=== PATIENT | female | born 1955 | race Caucasian/White ===

== ENCOUNTER 2016-10-19 16:08 | Emergency (ER) | payer SELFPAY ==
[2016-10-19] MEDS ORDERED: BUPIVACAINE 0.5% PF 30 ML VIAL SUBQ STA (17:15)
[2016-10-19] MEDS ORDERED: BUPIVACAINE 0.5% PF 30 ML VIAL ONE (17:27)
--- NOTE | 2016-10-19 17:31 | XRAY Preliminary Report ---
Exam: XR Wrist 4 View RT IMPRESSION: Acute right distal radial and ulnar fractures as above. [facility] SITE ID: [id number]
--- NOTE | 2016-10-19 17:32 | PROVIDER PROGRESS NOTE ---
Subjective - Prog Note Date Prog Note Date: 10/19/16 Prog Note Time: 17:30 - Subjective Subjective: Visitor from [place] today [place] walking on logs. Landed onto outstretched right dominant wrist. No LOC or distal weakness or numbness. No prior fractures at wrist. Objective - Vital Signs/Intake & Output Vital Signs: Vital Signs x48h Temp Pulse Resp BP Pulse Ox 10/19/16 16:26 37 C 73 14 111/65 100 - Diagnostic Imaging Diagnostic Imaging Comments: Extra-articular distal radius fracture - esstentially out to length with some dorsal displacement - Other Results/Comments Other Results/Comments: EXAM: Moves fingers well. Sensation intact. Good cap filling. Obvious bent fork deformity at wrist. Assessment/Plan - Problem List (1) Fracture of right distal radius Qualifiers: Encounter type: initial encounter Fracture type: closed Fracture morphology: Los' Qualified Code(s): S52.531A - Colles' fracture of right radius, initial encounter for closed fracture
--- NOTE | 2016-10-19 17:34 | XRAY Report ---
EXAM: RIGHT WRIST RADIOGRAPHY EXAM DATE: 10/19/2016 05:02 PM. CLINICAL HISTORY: Deformity. Fall, right wrist deformity. COMPARISON: None. TECHNIQUE: 4 views. FINDINGS: Bones: Acute right distal radial and ulnar fractures. There is moderate dorsal angulation of the righ t distal radial fracture through the metaphysis and epiphysis with moderate dorsal displacement along with impaction. Acute distal ulnar fracture with mild dorsal angulation and impaction. Small bone cysts seen at the capitate and scaphoid Joints: No dislocation. Soft Tissues: Wrist soft tissue swelling IMPRESSION: Acute right distal radial and ulnar fractures as above. [facility] Referring Provider Line: [phone] SITE ID: [id number]
--- NOTE | 2016-10-19 17:46 | ED Physician Documentation ---
History of Present Illness - Stated complaint Stated Complaint: RIGHT ARM/HAND PX - Chief complaint Chief Complaint: Ext Problem - Additonal information Additional information: hx from pt 60 f here on holiday from [place] trip and fall FOOSH R arm deformity no other injuries last ate 2 PM Review of Systems Musculoskeletal: reports: Extremity pain PD PAST MEDICAL HISTORY - Past Medical History Past Medical History: No - Past Surgical History Past Surgical History: Yes - Present Medications Home Medications: Ambulatory Orders Medication Instructions Recorded Confirmed Ibuprofen [Motrin] 400 mg PO Q6H PRN #30 tablet 10/19/16 Oxycodone HCl/Acetaminophen 1 each PO Q6HR PRN #10 tablet 10/19/16 [Percocet 5-325 mg Tablet] - Allergies Allergies/Adverse Reactions: Allergies Allergy/AdvReac Type Severity Reaction Status Date / Time No Known Drug Allergies Allergy Verified 10/19/16 16:29 - Social History Does the pt smoke?: No Smoking Status: Never smoker Does the pt drink ETOH?: No Does the pt have substance abuse?: No - Immunizations Immunizations are current?: Yes - POLST Patient has POLST: No PD ED PE NORMAL - Vitals Vital signs reviewed: Yes - HEENT HEENT: Atraumatic - Cardiac Cardiac: RRR - Respiratory Respiratory: No respiratory distress, Clear bilaterally - Extremities Extremities: Other (deformity distal R FA, MSV intact to hand) Results - Vitals Vitals: Vital Signs - 24 hr 10/19/16 16:26 Temperature 37 C Heart Rate 73 Respiratory 14 Rate Blood Pressure 111/65 O2 Saturation 100 Oxygen O2 Source Room air - Rads (name of study) wrist Radiology: See rad report (acute distal radius and ulna fx with dorsal angulation and displacement) wrist 2 Radiology: See rad report (reduced) PD MEDICAL DECISION MAKING - ED course ED course: hematoma block with 6 cc 0.5% marcaine s epi with good effect pt placed in traps and tehn Dr Almazan reduced the fracture and applied the splint (sse his note) post reduction film shows good alignment Departure - Departure Disposition: 01 Home, Self Care Clinical Impression: Fracture of right distal radius Qualifiers: Encounter type: initial encounter Fracture type: closed Fracture morphology: Colles' Qualified Code(s): S52.531A - Colles' fracture of right radius, initial encounter for closed fracture Condition: Good Instructions: ED Fx Forearm Radius Ulna Redu Requ, ED Splint Care Fiberglass Prescriptions: Oxycodone HCl/Acetaminophen [Percocet 5-325 mg Tablet] 1 each PO Q6HR PRN #10 tablet PRN Reason: Severe Pain Ibuprofen [Motrin] 400 mg PO Q6H PRN #30 tablet PRN Reason: Pain Comments: You will need to see orthopedics for a recheck and repeat xrays as soon as you get home from holiday - please call home ahead of your return to schedule While you are travelling, wear the splint at all times. You can wear the sling if your arm gets tired from the weight of the splint but it is not necessary Motrin and ice for mild pain, only take the percocet (a narcotic) for severe pain. If you have any problems while travelling, go to an emergency department or urgent care
[2016-10-19] MEDS ORDERED: oxyCOD/ACETAMIN 5 MG/325 MG TABLET PO STA (18:00)
[2016-10-19] MEDS ORDERED: oxyCOD/ACETAMIN 5 MG/325 MG TABLET PO ONE (18:10)
--- NOTE | 2016-10-19 18:21 | CONSULTATION NOTE ---
DATE OF CONSULTATION: 10/19/2016 00:00:00 REQUESTING PROVIDER: Constanza Zimmerman MD. HISTORY OF PRESENT ILLNESS: The patient is a 60-year-old right hand dominant female visiting here from [place] who apparently was walking on the beach with her here on [facility] today when she slipped off a log landing on her outstretched right upper extremity. Noted immediate pain and deformity of the wrist. No loss of consciousness or distal weakness or numbness in the upper extremity. No other injuries noted. No prior wrist fractures noted. On examination: The patient has a bent fork deformity at her wrist. It is tender on palpation of the fracture. Painful range of motion of wrist noted. Neurovascular appears to be intact distally. Moves her fingers and her thumb well with some pain. Good capillary filling of the digits. X-rays that were taken: Distal radius fracture that appears to be extra- articular. There is some dorsal translation of fracture. Fracture is essentially _out to length . ASSESSMENT: Closed right dominant distal radius fracture--extra-articular. Colles type fracture. PLAN: In the emergency room after hematoma block was given patient's fracture was placed under axial traction with about 5 to 8 pounds. After several minutes of this traction to disimpact the fracture a closed reduction was performed and a sugar tong splint was applied to the extremity. Post-reduction x-rays are still pending. Since the patient is planning on returning back to [place] in about 8 to 10 days , I have suggested that they consider going back to [place] a few days earlier for scheduled followup and casting of the fracture as needed. At the least they should try to contact their primary care doctor while they are here in [facility] to arrange for a specialist evaluation soon after their return to [place]. If possible, if her fracture should redisplace in her splint she may require a remanipulation of fracture and casting versus surgical fixation of her fracture. They are aware of the possible courses of action that will occur with her followup in [place] versus followup here in [facility]. JOB #: [id number] EXT JOB #:[id number] PEPE
--- NOTE | 2016-10-19 18:32 | XRAY Preliminary Report ---
Exam: XR Wrist 2 View RT IMPRESSION: Decreased angulation and offset of distal forearm fracture. [facility] SITE ID: [id number]
[2016-10-19 18:34] VITALS: BP 133/64
--- NOTE | 2016-10-19 18:35 | XRAY Report ---
EXAM: RIGHT WRIST RADIOGRAPHY EXAM DATE: 10/19/2016 06:20 PM. CLINICAL HISTORY: Fracture post reduction COMPARISON: 10/19/2016. TECHNIQUE: 3 views. FINDINGS: Bones: There is a distal radius fracture with 12 degrees of angulation. Angulation and offset are dec reased since previous examination. There is a fracture of the distal ulna which appears in improved a lignment. Joints: Normal. No subluxations. Soft Tissues: A splint has been placed. IMPRESSION: Decreased angulation and offset of distal forearm fracture. [facility] Referring Provider Line: [phone] SITE ID: [id number]
== END 2016-10-19 18:47 | disposition home or self-care (01) ==
LOC: ED 16:08
DX: S52.531A Colles' fracture of right radius, initial encounter for closed fracture (principal); W01.0XXA Fall on same level from slipping, tripping and stumbling without subsequent striking against object, initial encounter; Y92.832 Beach as the place of occurrence of the external cause
CPT/HCPCS: 25560; 73100; 73110; 99283; A9270